=== PATIENT | male | born 1985 | race Asian ===

== ENCOUNTER 2017-10-13 23:20 | Emergency (ER) | payer MEDICAID ==
[~2017-10-13] VITALS: Ht 165.1 cm; Wt 65.8 kg
[2017-10-13 23:28] VITALS: BP_SYST 163
--- NOTE | 2017-10-14 | NUR ---
Patient to [facility] for evaluation.
--- NOTE | 2017-10-14 00:05 | NUR ---
Patient AOx4, ambulatory, presents to ER with complaint of right upper teeth pain 9/10. Patient states no injury to site. No drainage noted. Patient states no fever. No other symptoms or complaints.
--- NOTE | 2017-10-14 00:10 | NUR ---
[facility] KELSEY Kwaw at bedside for medical evaluation.
[2017-10-14 00:24] VITALS: BP_SYST 152
--- NOTE | 2017-10-14 00:24 | NUR ---
Patient given written and verbal discharge instructions and verbalizes understanding. ER MD discussed with patient the results and treatment provided. Patient in stable condition. ID arm band removed. Rx of Penicillin and Naprosyn given. Patient educated on pain management and to follow up with PMD. Pain Scale 2/10 tolerable to patient. Opportunity for questions provided and answered.
== END 2017-10-14 00:24 | disposition home or self-care (01) ==
LOC: SED 23:20
DX: K08.89 Other specified disorders of teeth and supporting structures (principal)
CPT/HCPCS: 99283